=== PATIENT | male | born 1960 | race Caucasian/White ===

== ENCOUNTER 2016-10-14 10:38 | Outpatient (CLI) | payer OTHER | END 2016-10-14 23:00 | LOC: LAB SRH 10:38 | DX: D50.0 Iron deficiency anemia secondary to blood loss (chronic) (principal); I10 Essential (primary) hypertension; E78.9 Disorder of lipoprotein metabolism, unspecified; R97.20 Elevated prostate specific antigen [PSA] | CPT/HCPCS: 90074; 90100; 91046; 92690; 94060; 95059 ==